=== PATIENT | female | born 1965 | race Caucasian/White ===

== ENCOUNTER → 2021-03-24 13:40 | Outpatient (CLI) | payer OTHER, SELFPAY ==
[2021-03-24 15:45] LABS: COVID19 -Nasal RAPID POSITIVE (Negative)
== END ==
PROVIDERS: Visit Provider Nurse Practitioner Family
DX: Z20.822 Contact with and (suspected) exposure to COVID-19 (principal)
CPT/HCPCS: 87635

== ENCOUNTER 2021-06-04 21:17 | Emergency (ER) | payer BC, OTHER, SELFPAY ==
[2021-06-04] VITALS (9 sets, daily range): BP systolic 130–152; BP diastolic 72–82; PULSE 99–119; RESP 22; TEMP 37.1; O2SAT 95–100
--- NOTE | 2021-06-04 21:25 | DI.RAD.S_ITS ---
PROCEDURE: XR CHEST 2V INDICATIONS: cough TECHNIQUE: 2 views of the chest were acquired. COMPARISON: [facility], , CHEST 2 VIEW, 05/07/2015, 11:57. FINDINGS: Surgical changes and devices: None. Lungs and pleura: Lungs are clear. No pleural effusions or pneumothorax. Mediastinum: Mediastinal contours are normal. Heart size is normal. Bones and chest wall: No suspicious bony abnormalities. Soft tissues appear unremarkable. IMPRESSION: 1. No acute cardiopulmonary disease. Dictated by: Eduardo Decker M.D. on 06/04/2021 at 21:47 Approved by: Eduardo Decker M.D. on 06/04/2021 at 21:48
--- NOTE | 2021-06-04 21:32 | ED.SOB ---
HPI - SOB/Dyspnea General Chief Complaint: Upper Respiratory Symptoms Stated Complaint: difficulty breathing,throat constricts when cough Time Seen by Provider: 06/04/21 21:19 Source: patient Mode of arrival: Ambulatory History of Present Illness HPI Narrative: 55F nonsmoker with history of hypothyroid presents with her in the chief complaint of a gradually worsening dry and hacking cough over the past few days if not weeks. She presents today because of increasing shortness of breath, and the most bothersome issue is that with her forceful coughing she feels that her throat is closing. She tends to have an increase in her heart rate when these episodes happen. She denies any runny nose, fever or chills. She denies any ongoing smoking but use to. She states she had COVID in March and has not felt great since. She denies any recent travel, history of blood clot or any type of cancer. She denies any lower extremity pain, swelling or redness. She denies any worsening of symptoms with deep breath. Related Data Home Medications Medication Instructions Recorded Confirmed LEVOTHYROXINE SODIUM 0.15 mg PO Q DAY #0 02/26/11 03/24/21 (LEVOTHYROXINE-) Previous Rx's Medication Instructions Recorded benzonatate 200 mg capsule 200 mg PO BID PRN #20 cap 06/05/21 prednisone 10 mg tablet See Rx Instructions .ROUTE 06/05/21 .COMPLEX #30 tab Allergies Allergy/AdvReac Type Severity Reaction Status Date / Time Sulfa (Sulfonamide Allergy Intermediate HIVES W/ Unverified 03/24/21 13:36 Antibiotics) BLISTERS Review of Systems Review of Systems Narrative: GENERAL: Denies chills, fatigue, malaise, fever, sweats. HEENT: Denies sinus pain, ear pain, sore throat, difficulty swallowing, dizziness. RESPIRATORY: D see HPI CARDIOVASCULAR: Denies chest pain, palpitations, orthopnea, edema, GASTROINTESTINAL: Denies nausea, vomiting, abdominal pain, diarrhea, constipation, melena. : Denies dysuria, frequency, incontinence, hematuria, urinary retention. MUSCULOSKELETAL: denies weakness, joint pain, or bony pain SKIN: Denies rash, skin lesions, or other NEUROLOGIC: Denies weakness, headache, numbness, change in speech, confusion, seizures, incoordination. PSYCHIATRIC: No concerning psychosocial issues. 12 point review of systems is negative except for those stated above Patient History Social History Smoking Status: Never smoker Smoking Status: Never smoker Exam Narrative Exam Narrative: GENERAL: [55 year old patient appears stated age. Well-developed patient, in mild distress. HEAD: Atraumatic. Normocephalic. EYES: Pupils equal round and reactive. Extraocular motions intact. No scleral icterus. No injection or drainage. ENT: Nose without bleeding, purulent drainage. Throat without erythema, tonsillar hypertrophy or exudate. Airway patent. NECK: Trachea midline. Non tender CARDIOVASCULAR: Tachycardic but regular rhythm without murmurs, gallops, or rubs. RESPIRATORY: Faint inspiratory wheeze in bases, otherwise no increased work of breathing, tachypnea, use of accessory muscles, rales or rhonchi. GASTROINTESTINAL: Abdomen soft, non-tender, nondistended. EXTREMITIES: No edema or joint tenderness. BACK: Nontender without deformity or crepitance. No flank tenderness. NEURO: AOx3. SKIN: No rash or erythema of visible areas Initial Vital Signs Initial Vital Signs: Vital Signs Temperature 98.7 F 06/04/21 21:24 Pulse Rate 116 H 06/04/21 21:24 Respiratory Rate 22 06/04/21 21:24 Blood Pressure 152/82 H 06/04/21 21:24 Pulse Oximetry 97 06/04/21 21:24 Course Orders Ordered: ED Orders 06/04/21 21:25 Consult to Respiratory Therapy Evaluate & Treat Chest [XR chest 2V] Stat 06/04/21 21:30 COVID19 -Nasal swab/Pre-Proc Stat 06/04/21 21:39 Consult to Respiratory Therapy Evaluate & Treat EKG-12 Lead Stat 06/04/21 22:10 Lactate (Lactic Acid) Stat 06/04/21 22:31 Complete Blood Count AUTO DIFF Stat Comprehensive Metabolic Panel Stat D Dimer Stat Magnesium Stat NT-proBNP (BNP-Adult 18+) Stat Procalcitonin Stat Troponin & CK Cardiac Panel Stat 06/04/21 23:13 CT angio chest PE protocol Stat Discontinued Medications Albuterol (Albuterol Hfa Prepack) 1 box MISC SEEINSTR ONE Stop: 06/05/21 00:47 Last Admin: 06/05/21 01:07 Dose: 1 box Documented by: [email or web address] Albuterol/Ipratropium (Albuterol/Ipratropium 3 Ml Ampul) 3 ml INH NOW ONE Stop: 06/04/21 21:40 Last Admin: 06/04/21 22:15 Dose: 3 ml Documented by: ИРИНА Sodium Chloride (Normal Saline 0.9%) 1,000 mls @ 1,000 mls/hr IV BOLUS ONE Stop: 06/04/21 22:43 Last Infusion: 06/04/21 23:44 Dose: 0 mls/hr Documented by: Admin: 06/04/21 22:08 Dose: 1,000 mls/hr Documented by: DEJA Methylprednisolone (Methylprednisolone 125 Mg/2 Ml Vial) 125 mg IV NOW ONE Stop: 06/04/21 21:40 Last Admin: 06/04/21 22:08 Dose: 125 mg Documented by: DEJA Vital Signs Vital signs: Vital Signs - 8 hr 06/04/21 21:24 06/04/21 21:42 06/04/21 22:00 Temperature 98.7 F Pulse Rate 116 H 117 H 115 H Respiratory Rate 22 Blood Pressure 152/82 H Pulse Oximetry 97 97 96 06/04/21 22:15 06/04/21 22:21 06/04/21 22:30 Temperature Pulse Rate 99 H 107 H 119 H Respiratory Rate 22 Blood Pressure 131/76 130/72 Pulse Oximetry 97 100 95 06/04/21 23:00 06/04/21 23:25 06/04/21 23:30 Temperature Pulse Rate 117 H 116 H 115 H Respiratory Rate Blood Pressure 139/80 142/74 H 136/75 Pulse Oximetry 96 96 98 06/05/21 00:00 06/05/21 00:06 06/05/21 00:30 Temperature Pulse Rate 118 H 119 H 111 H Respiratory Rate Blood Pressure 141/78 H 126/78 Pulse Oximetry 94 96 97 06/05/21 01:00 06/05/21 01:07 Temperature Pulse Rate 119 H 102 H Respiratory Rate 20 Blood Pressure Pulse Oximetry 96 96 MDM - SOB/Dyspnea Lab Data Result diagrams: 06/04/21 22:31 06/04/21 22:31 Labs: Lab Results 06/04/21 06/04/21 06/04/21 Range/Units 21:30 22:10 22:31 WBC 14.0 H (4.5-11.0) X10^3/uL RBC 4.60 (4.0-5.2) X10^6/uL Hgb 13.8 (12.0-16.0) g/dL Hct 40.9 (36-46) % MCV 88.8 (80-100) fL MCH 30.0 (26-34) PG MCHC 33.8 (30-36) % RDW 13.4 (11.6-14.8) % Plt Count 303 (150-400) X10^3/uL Neut % (Auto) 73.5 (50-75) % Lymph % (Auto) 18.8 L (25-40) % Randolph % (Auto) 5.9 (3-14) % Eos % (Auto) 1.1 L (2-4) % Baso % (Auto) 0.7 (0-2) % Neut # (Auto) 59992 H (2864-4245) /uL Lymph # (Auto) 2600 (1117-9526) /uL Randolph # (Auto) 800 (0-900) /uL Eos # (Auto) 200 (0-450) /uL Baso # (Auto) 100 (0-100) /uL D-Dimer (<230) ng/mL Sodium (137-145) mmol/L Potassium (3.4-5.1) mmol/L Chloride (98-107) mmol/L Carbon Dioxide (22-32) mmol/L BUN (7-17) mg/dL Creatinine (0.52-1.04) mg/dL Estimated GFR (>60) mL/min BUN/Creatinine Ratio (6-22) Glucose (70-100) mg/dL Lactate 0.9 (0.7-2.1) mmol/L Calcium (8.4-10.2) mg/dL Magnesium (1.6-2.3) mg/dL Total Bilirubin (0.2-1.3) mg/dL AST (14-36) IU/L ALT (<35) IU/L Alkaline Phosphatase (38-126) U/L Total Creatine Kinase (30-135) U/L CK-MB (CK-2) CK-MB (CK-2) Rel Index Troponin I (0.01-0.034) ng/mL NT-Pro-B Natriuret Pep (<125) pg/mL Total Protein (6.3-8.2) g/dL Albumin (3.5-5.0) g/dL Globulin (1.7-4.1) g/dL Albumin/Globulin Ratio (1.0-2.8) Procalcitonin (<0.5) ng/mL SARS-CoV-2 (PCR) Negative (Negative) 06/04/21 06/04/21 06/04/21 Range/Units 22:31 22:31 22:31 WBC (4.5-11.0) X10^3/uL RBC (4.0-5.2) X10^6/uL Hgb (12.0-16.0) g/dL Hct (36-46) % MCV (80-100) fL MCH (26-34) PG MCHC (30-36) % RDW (11.6-14.8) % Plt Count (150-400) X10^3/uL Neut % (Auto) (50-75) % Lymph % (Auto) (25-40) % Randolph % (Auto) (3-14) % Eos % (Auto) (2-4) % Baso % (Auto) (0-2) % Neut # (Auto) (6137-5294) /uL Lymph # (Auto) (7303-0078) /uL Randolph # (Auto) (0-900) /uL Eos # (Auto) (0-450) /uL Baso # (Auto) (0-100) /uL D-Dimer 200 (<230) ng/mL Sodium (137-145) mmol/L Potassium (3.4-5.1) mmol/L Chloride (98-107) mmol/L Carbon Dioxide (22-32) mmol/L BUN (7-17) mg/dL Creatinine (0.52-1.04) mg/dL Estimated GFR (>60) mL/min BUN/Creatinine Ratio (6-22) Glucose (70-100) mg/dL Lactate (0.7-2.1) mmol/L Calcium (8.4-10.2) mg/dL Magnesium 2.0 (1.6-2.3) mg/dL Total Bilirubin (0.2-1.3) mg/dL AST (14-36) IU/L ALT (<35) IU/L Alkaline Phosphatase (38-126) U/L Total Creatine Kinase 55 (30-135) U/L CK-MB (CK-2) TNP CK-MB (CK-2) Rel Index TNP Troponin I < 0.012 (0.01-0.034) ng/mL NT-Pro-B Natriuret Pep 32 (<125) pg/mL Total Protein (6.3-8.2) g/dL Albumin (3.5-5.0) g/dL Globulin (1.7-4.1) g/dL Albumin/Globulin Ratio (1.0-2.8) Procalcitonin 0.06 (<0.5) ng/mL SARS-CoV-2 (PCR) (Negative) 06/04/21 Range/Units 22:31 WBC (4.5-11.0) X10^3/uL RBC (4.0-5.2) X10^6/uL Hgb (12.0-16.0) g/dL Hct (36-46) % MCV (80-100) fL MCH (26-34) PG MCHC (30-36) % RDW (11.6-14.8) % Plt Count (150-400) X10^3/uL Neut % (Auto) (50-75) % Lymph % (Auto) (25-40) % Randolph % (Auto) (3-14) % Eos % (Auto) (2-4) % Baso % (Auto) (0-2) % Neut # (Auto) (3072-5695) /uL Lymph # (Auto) (4971-0709) /uL Randolph # (Auto) (0-900) /uL Eos # (Auto) (0-450) /uL Baso # (Auto) (0-100) /uL D-Dimer (<230) ng/mL Sodium 140 (137-145) mmol/L Potassium 4.6 (3.4-5.1) mmol/L Chloride 104 (98-107) mmol/L Carbon Dioxide 29 (22-32) mmol/L BUN 12 (7-17) mg/dL Creatinine 0.78 (0.52-1.04) mg/dL Estimated GFR > 60.0 (>60) mL/min BUN/Creatinine Ratio 15.4 (6-22) Glucose 109 H (70-100) mg/dL Lactate (0.7-2.1) mmol/L Calcium 9.6 (8.4-10.2) mg/dL Magnesium (1.6-2.3) mg/dL Total Bilirubin 0.4 (0.2-1.3) mg/dL AST 24 (14-36) IU/L ALT 24 (<35) IU/L Alkaline Phosphatase 60 (38-126) U/L Total Creatine Kinase (30-135) U/L CK-MB (CK-2) CK-MB (CK-2) Rel Index Troponin I (0.01-0.034) ng/mL NT-Pro-B Natriuret Pep (<125) pg/mL Total Protein 7.9 (6.3-8.2) g/dL Albumin 4.6 (3.5-5.0) g/dL Globulin 3.3 (1.7-4.1) g/dL Albumin/Globulin Ratio 1.4 (1.0-2.8) Procalcitonin (<0.5) ng/mL SARS-CoV-2 (PCR) (Negative) Imaging Data Chest x-ray: Radiologist's Impression: Launch?Image [address] [address] XRay Report Signed Patient: Mavis Carrillo MR#: [id number] : 1965 Acct:[id number] Age/Sex: 55 / F Date of Service: 06/04/21 Loc: ED Accession Number: [id number] ?? Procedure: XR chest 2V Ordering Provider: Gokul Carlson D.O. PROCEDURE:? XR CHEST 2V ? INDICATIONS:? cough ? TECHNIQUE:? 2 views of the chest were acquired.? ? COMPARISON:? [facility], , CHEST 2 VIEW, 05/07/2015, 11:57. ? FINDINGS:? ? Surgical changes and devices:? None.? ? Lungs and pleura:? Lungs are clear.? No pleural effusions or pneumothorax.? ? Mediastinum:? Mediastinal contours are normal.? Heart size is normal.? ? Bones and chest wall:? No suspicious bony abnormalities.? Soft tissues appear unremarkable.? ? IMPRESSION:? ? 1.? No acute cardiopulmonary disease. ? ? Dictated by: Eduardo Decker M.D. on 06/04/2021 at 21:47 ? ? Approved by: Eduardo Decker M.D. on 06/04/2021 at 21:48 ? CT scan - chest: Radiologist's Impression: Launch?Image [address] [address] [address] Scan Report Signed Patient: Mavis Carrillo MR#: [id number] : 1965 Acct:[id number] Age/Sex: 55 / F Date of Service: 06/04/21 Loc: ED Accession Number: [id number] ?? Procedure: CT angio chest PE protocol Ordering Provider: Gokul Carlson D.O. PROCEDURE:? CT ANGIO CHEST PE PROTOCOL ? INDICATIONS:? Shortness of breath, cough, tachycardia, post covid ? TECHNIQUE:? After the administration of intravenous contrast, 2 mm thick sections acquired from the pulmonary apices to the posterior costophrenic angles.? 3-dimensional maximum intensity projection (MIP) coronal and sagittal reformats were then acquired through the thorax.? For radiation dose reduction, the following was used:? automated exposure control, adjustment of mA and/or kV according to patient size.? ? COMPARISON:? [facility], CR, XR CHEST 2V, 06/04/2021, 21:16. ? FINDINGS:? Image quality:? Excellent.? ? Pulmonary arteries:? Pulmonary arteries are normal in size, and demonstrate no intraluminal filling defects to suggest central pulmonary embolism.? ? Lungs and pleura:? There is mild dependent atelectasis bilaterally.? No focal consolidation.? No pleural effusions or pneumothorax.? Central and peripheral airways are patent.? ? Mediastinum:? Heart size is normal, without pericardial effusion.? No mediastinal or hilar adenopathy.? Thoracic aorta is normal in caliber and enhancement.? Esophagus is normal in caliber, with a small hiatal hernia.? ? Bones and chest wall:? No suspicious bony lesions.? Ribs and thoracic spine appear intact throughout.? No axillary or supraclavicular adenopathy.? ? Abdomen:? Visualized upper abdominal solid organs appear normal in the early arterial phase of enhancement.? ? IMPRESSION:? ? 1. No evidence of pulmonary embolism. ? 2. Mild dependent atelectasis bilaterally without acute consolidation.? ? Dictated by: Eduardo Decker M.D. on 06/04/2021 at 23:45 ? ? Approved by: Eduardo Decker M.D. on 06/04/2021 at 23:50 ? [facility] Narrative Medical decision making narrative: Patient with very reassuring history and physical exam she is awake, alert and oriented with no significant respiratory distress. She does have a frequent dry and hacking cough and elevated heart rate. She is given fluids, bronchodilators and extensive workup includes largely reassuring labs. Though her D-dimer was negative we elected to perform angiography of the chest to rule out pericardial effusion, space-occupying lesions, infection and other. She feels much better after above-stated therapies. There is no sign of sepsis, blood clot, anemia, electrolyte abnormality. She is given extensive return precautions and questions have been answered to her apparent satisfaction Discharge Plan Departure Patient Disposition: Home Clinical Impression: Upper respiratory infection Instructions: DI for Cough -- Adult Activity Restrictions/Additional Instructions: *You have been diagnosed with [cough and shortness of breath. As we discussed her history and physical exam are very reassuring. Labs are unremarkable and imaging shows no sign of pneumonia, blood clot or swelling in her neck or throat. *What to do: *Please continue to take your regular medications as directed. [ x] New medication prescriptions sent to your pharmacy: [[facility] ] [ x] in addition to the prescription medications, please consider an [id number] antihistamine to dry secretions and also help with your cough *Please follow up with your primary care provider in 2-3 days, call for an appointment. Let them know you were seen in the Emergency Department and that we ask that you be seen in follow up. We will electronically transmit a record of today's note if your PCP is in our system *If you do not have a primary care provider please contact the [facility] Resource line at [phone]. They will ask some questions about your medical history and help get you set up with a doctor in the community. *Return to Emergency Department if you should have any new, worsening or concerning symptoms, such as [fever greater than 101 F, shaking chills, worsening pain, persistent vomiting or other bothersome symptoms] Prescriptions: New prednisone 10 mg tablet See Rx Instructions .ROUTE .COMPLEX Qty: 30 0RF Rx Instructions: Day 1,2,3: 40mg PO Daily Day 4,5,6: 30mg PO Daily Day 7,8,9: 20mg PO Daily Day 10,11,12: 10mg PO Daily #30 benzonatate 200 mg capsule 200 mg PO BID PRN (Reason: cough) Qty: 20 0RF No Action LEVOTHYROXINE SODIUM (LEVOTHYROXINE-) 0.15 mg PO Q DAY Qty: 0 0RF
[2021-06-04 22:02] LABS: COVID19 -Nasal RAPID Negative (Negative)
[2021-06-04] MEDS: SODIUM CHLORIDE 0.9% 1,000 ML 1000 ML IV (22:08)
[2021-06-04] MEDS: methylPREDNISolone 125 MG/2 ML VIAL IV (22:08)
[2021-06-04] MEDS: ALBUTEROL/IPRATROPIUM 3 ML AMPUL INH (22:15)
[2021-06-04 22:31] LABS: Lactate (Lactic Acid) 0.9 mmol/L (0.7-2.1)
[2021-06-04 22:47] LABS: Add Manual Diff / Slide Review NO; Basophils Absolute Auto 100 /uL (0-100); Basophils Percent Auto 0.7 % (0-2); Eosinophils Absolute Auto 200 /uL (0-450); Eosinophils Percent Auto 1.1 % (2-4); Hematocrit 40.9 % (36-46); Hemoglobin 13.8 g/dL (12.0-16.0); Lymphocytes Absolute Auto 2600 /uL (1100-4500); Lymphocytes Percent Auto 18.8 % (25-40); Mean Corpuscular HGB Conc 33.8 % (30-36); Mean Corpuscular Volume 88.8 fL (80-100); Monocytes Absolute Auto 800 /uL (0-900); Monocytes Percent Auto 5.9 % (3-14); Neutrophils Absolute Auto 10300 /uL (1500-7000); Neutrophils Percent Auto 73.5 % (50-75); Platelet Count 303 X10^3/uL (150-400); Red Cell Distribution Width 13.4 % (11.6-14.8)
[2021-06-04 22:55] LABS: D Dimer 200 ng/mL (<230)
[2021-06-04 22:57] LABS: Creatine Kinase 55 U/L (30-135)
[2021-06-04 22:58] LABS: Alanine Aminotransferase 24 IU/L (<35); Albumin 4.6 g/dL (3.5-5.0); Albumin Globulin Ratio 1.4 (1.0-2.8); Alkaline Phosphatase 60 U/L (38-126); Aspartate Aminotransferase 24 IU/L (14-36); BUN Creatinine Ratio 15.4 (6-22); Bilirubin Total 0.4 mg/dL (0.2-1.3); Blood Urea Nitrogen 12 mg/dL (7-17); Calcium 9.6 mg/dL (8.4-10.2); Carbon Dioxide 29 mmol/L (22-32); Chloride 104 mmol/L (98-107); Estimated Glomerular Filt Rate > 60.0 mL/min (>60); Globulin 3.3 g/dL (1.7-4.1); Glucose 109 mg/dL (70-100); HEMOLYSIS < 15 (0-50); Potassium 4.6 mmol/L (3.4-5.1); Sodium 140 mmol/L (137-145); Total Protein 7.9 g/dL (6.3-8.2)
[2021-06-04 23:08] LABS: NT-proBNP (BNP-Adult 18+) 32 pg/mL (<125)
[2021-06-04 23:10] LABS: Troponin I < 0.012 ng/mL (0.01-0.034)
--- NOTE | 2021-06-04 23:13 | DI.CT.S_ITS ---
PROCEDURE: CT ANGIO CHEST PE PROTOCOL INDICATIONS: Shortness of breath, cough, tachycardia, post covid TECHNIQUE: After the administration of intravenous contrast, 2 mm thick sections acquired from the pulmonary apices to the posterior costophrenic angles. 3-dimensional maximum intensity projection (MIP) coronal and sagittal reformats were then acquired through the thorax. For radiation dose reduction, the following was used: automated exposure control, adjustment of mA and/or kV according to patient size. COMPARISON: [facility], CR, XR CHEST 2V, 06/04/2021, 21:16. FINDINGS: Image quality: Excellent. Pulmonary arteries: Pulmonary arteries are normal in size, and demonstrate no intraluminal filling defects to suggest central pulmonary embolism. Lungs and pleura: There is mild dependent atelectasis bilaterally. No focal consolidation. No pleural effusions or pneumothorax. Central and peripheral airways are patent. Mediastinum: Heart size is normal, without pericardial effusion. No mediastinal or hilar adenopathy. Thoracic aorta is normal in caliber and enhancement. Esophagus is normal in caliber, with a small hiatal hernia. Bones and chest wall: No suspicious bony lesions. Ribs and thoracic spine appear intact throughout. No axillary or supraclavicular adenopathy. Abdomen: Visualized upper abdominal solid organs appear normal in the early arterial phase of enhancement. IMPRESSION: 1. No evidence of pulmonary embolism. 2. Mild dependent atelectasis bilaterally without acute consolidation. Dictated by: Eduardo Decker M.D. on 06/04/2021 at 23:45 Approved by: Eduardo Decker M.D. on 06/04/2021 at 23:50
[2021-06-04 23:15] LABS: Procalcitonin 0.06 ng/mL (<0.5)
[2021-06-05] VITALS: BP 141/78; PULSE 118; O2SAT 94
[2021-06-05 00:06] VITALS: BP 126/78; PULSE 119; O2SAT 96
[2021-06-05 00:30] VITALS: PULSE 111; O2SAT 97
[2021-06-05 01:00] VITALS: PULSE 119; O2SAT 96
[2021-06-05 01:07] VITALS: PULSE 102; RESP 20; O2SAT 96
[2021-06-05] MEDS: ALBUTEROL HFA PREPACK 1 BOX MISC (01:07)
== END 2021-06-05 01:21 | disposition home or self-care (01) ==
PROVIDERS: Emergency Provider Emergency Medicine
DX: J06.9 Acute upper respiratory infection, unspecified (principal); Z20.822 Contact with and (suspected) exposure to COVID-19
CPT/HCPCS: 36415; 71046; 71275; 80053; 82550; 83605; 83735; 83880; 84145; 84484; 85025; 85379; 87635; 93005; 94640; 96361; 96374; 99284; C9803; J2930; Q9967